=== PATIENT | male | born 1970 | race Asian ===

== ENCOUNTER → 2019-08-04 11:37 | Outpatient (CLI) | payer OTHER, SELFPAY ==
[2019-08-04 12:35] LABS: Add Manual Diff / Slide Review NO; Basophils Absolute Auto 0 /uL (0-100); Basophils Percent Auto 0.8 % (0-2); Eosinophils Absolute Auto 100 /uL (0-450); Hematocrit 45.4 % (41-53); Hemoglobin 15.5 g/dL (13.5-17.5); Lymphocytes Absolute Auto 1100 /uL (1100-4500); Lymphocytes Percent Auto 19.7 % (25-40); Mean Corpuscular HGB Conc 34.1 % (30-36); Mean Corpuscular Hemoglobin 31.6 PG (26-34); Mean Corpuscular Volume 92.9 fL (80-100); Monocytes Absolute Auto 500 /uL (0-900); Monocytes Percent Auto 8.9 % (3-14); Neutrophils Absolute Auto 4000 /uL (1500-7000); Neutrophils Percent Auto 69.6 % (50-75); Platelet Count 296 X10^3/uL (150-400); Red Blood Cell Count 4.89 X10^6/uL (4.5-5.9); White Blood Cell Count 5.8 X10^3/uL (4.5-11.0)
== END ==
PROVIDERS: PCP Internal Medicine; Visit Provider Internal Medicine
DX: R10.13 Epigastric pain (principal)
CPT/HCPCS: 36415; 85025

== ENCOUNTER 2022-12-22 07:56 | Day surgery (SDC) | payer OTHER, SELFPAY ==
--- NOTE | 2022-12-22 | PATH_ITS ---
[facility] Accession Number: [id number] No. of containers..02 Tissue . 01 Material submitted: . PART A: colon - TRANSVERSE COLON POLYP PART B: colon - DESCENDING COLON POLYP . 01 Diagnosis: A. Transverse Colon Polyp: Sessile serrated adenoma. . B. Descending Colon Polyp: Traditional serrated adenoma. Negative for high-grade dysplasia or malignancy. MRV 12/24/2022 1418 Local . 01 Electronically signed: . Eric Bunch MD, PhD, Pathologist NPI- [id number] . 01 Gross description: . Part A: TRANSVERSE COLON POLYP: Received in formalin is 1 fragment(s) of keating, soft tissue measuring 0.3 x 0.3 x 0.1 cm submitted entirely in 1 cassette(s) Part B: DESCENDING COLON POLYP: Received in formalin is 1 fragment(s) of keating, soft tissue measuring 0.5 x 0.4 x 0.4 cm which is bisected and submitted entirely in 1 cassette(s) /CPE 12/23/2022 0659 Local . 01 Pathologist provided ICD-10: D12.3, D12.4 . 01 CPT . 454188, [id number] Specimen Comment: A courtesy copy of this report has been sent to [phone] Performed at: 01 [facility] [address] [place] [address], [place], [place] [id number] MD Noble Mack MD Phone: [phone]
--- NOTE | 2022-12-22 08:31 | PM.HP.1 ---
History of Present Illness History of Present Illness Date Patient Seen: 12/22/22 Time Patient Seen: 08:32 Chief complaint: SDC Narrative: Here for colon cancer screening. I reviewed my recent office note. Review of Systems Review of Systems ROS: Yes All systems reviewed with the patient and are negative except as otherwise documented Exam Const General: cooperative HENMT Head: normal to inspection Eyes General: appearance normal, both eyes and all related structures Neck Neck: normal visual inspection Chest Chest: normal inspection of the chest Resp Effort & Inspection: normal respiratory effort Cardio Rate: regular rate GI Inspection: normal to inspection Skin General: no rashes or lesions noted Neuro General: patient alert and patient awake Extrem General: normal to inspection and no pedal edema Psych Appearance: grossly normal Assessment & Plan Assessment & Plan narrative: 52-year-old male for colon cancer screening. Colonoscopy is pursued today.
--- NOTE | 2022-12-22 08:33 | PM.PREOP ---
Pre-operative Note Interval Note History & Physical reviewed/Exam performed by Physician: Yes Changes to H&P: No ASA Class (for procedural sedation): I
[2022-12-22 08:37] VITALS: BP 115/75; PULSE 73; RESP 16; TEMP 36.3; O2SAT 100; BMI 18.7
--- NOTE | 2022-12-22 09:40 | PM.OP.COLON ---
Operative Date/Time/Diagnoses Date of procedure: 12/22/22 Time of procedure: 09:41 Pre-op diagnosis: Colon cancer screening Post-op diagnosis: same Procedure & Clinicians Study performed: Colonoscopy with hot and cold snare polypectomy Same procedure as scheduled: Yes Indications: Colon cancer screening Surgeon: Parth Chen Procedure Notes SCOAP/Timeout: Done Procedure in detail: After the risks and benefits were explained, written and verbal informed consent was obtained. The patient was brought into the procedure room and placed into the left lateral decubitus position. No sedation was utilized during today's exam. Digital rectal examination was accomplished. The scope was introduced into the patient and advanced under direct visualization to the cecum as identified by the appendiceal orifice and ileocecal valve. The scope was slowly withdrawn to carefully examine the mucosa for any defects or lesions. Comprehensive imaging was accomplished throughout the rectum including the dentate line. The colon was decompressed, the scope was then removed from the patient who tolerated the procedure well. Pediatric colonoscope Bowel prep adequate Scope withdrawal time: 19 minutes Sedation minutes: 25 Complications: none Impression: There was a 6 mm sessile polyp in the transverse colon removed with cold snare. There was an almost 10 mm sessile but more polypoid polyp in the descending colon removed with hot snare. The patient had a fairly evaginated terminal ileum. No additional pathology appreciated throughout. Endoscopic diagnosis Colon polyps Post-procedure Plan for aftercare: 1. Await histopathology. 2. Surveillance colonoscopy recommendation will be contingent on pathology results. Disposition: PACU
[2022-12-22 10:24] VITALS: BP 115/75; PULSE 73; RESP 16; TEMP 36.3; O2SAT 98
== END 2022-12-22 10:23 | disposition home or self-care (01) ==
PROVIDERS: PCP Internal Medicine; Referring Provider Internal Medicine Gastroenterology; Visit Provider Internal Medicine Gastroenterology
PROC: 0DJD8ZZ Inspection of Lower Intestinal Tract, Via Natural or Artificial Opening Endoscopic (ICD-10-PCS; CPT 45378; principal; 2022-12-22 09:00)
DX: Z12.11 Encounter for screening for malignant neoplasm of colon (principal); Z83.71 Family history of colonic polyps; D12.3 Benign neoplasm of transverse colon; D12.4 Benign neoplasm of descending colon
CPT/HCPCS: 45385

== ENCOUNTER → 2024-09-29 09:08 | Outpatient (CLI) | payer BC, SELFPAY ==
[2024-09-29 09:59] LABS: Cholesterol 191 mg/dL (140-199); Glucose 91 mg/dL (70-100); HDL Cholesterol 66 mg/dL (40-60); LDL Cholesterol Calculated 99 mg/dL (<100); Triglycerides 130 mg/dL (35-150)
[2024-09-29 10:29] LABS: Prostate Specific Antigen Scrn 1.23 ng/mL (0.1-4.0)
== END ==
PROVIDERS: PCP Internal Medicine; Referring Provider Internal Medicine; Visit Provider Internal Medicine
DX: Z00.00 Encounter for general adult medical examination without abnormal findings (principal); Z12.5 Encounter for screening for malignant neoplasm of prostate
CPT/HCPCS: 36415; 80061; 82947; G0103